=== PATIENT | female | born 1950 | race Caucasian/White ===

== ENCOUNTER 2017-11-27 20:13 | Emergency (ER) | payer MEDICARE, MEDICAID ==
[~2017-11-27] VITALS: Ht 162.6 cm; Wt 42.6 kg
[~2017-11-27 20:13] MED LIST: AMLO5TAB PO; DIPH-186 PO; ESTR0.5T PO; GABA-532 PO; GABA300C PO; HYDR-569 PO; LOP25T PO; MORP-64 PO; MORP15TA PO; NITR100C6 PO; OXYB5TAB11 PO; TRAZ-91 PO
[2017-11-27] MEDS ORDERED: dexamethasone sod phosphate 10mg/ml inj IV STA (20:50)
[2017-11-27] MEDS ORDERED: ketorolac tromethamine 15mg/ml inj. IV ONE (20:50)
[2017-11-27] MEDS ORDERED: proCHLORperazine 10 MG/2 ml inj IV ONE (20:50)
[2017-11-27] MEDS ORDERED: diphenhydrAMINE 50 mg/ml inj IV ONE (20:50)
[2017-11-27] MEDS ORDERED: normal saline 1000ML IV soln IVB ONE (20:50)
[2017-11-27] MEDS ORDERED: SUMAtriptan succ. 6 MG/0.5ml vial SQ ONE (20:50)
[2017-11-27] MEDS ORDERED: SUMA50TA PO (21:52)
[2017-11-27] MEDS ORDERED: PROC-8 PO (21:52)
[2017-11-27 22:28] VITALS: BP 170/55
== END 2017-11-27 22:32 | disposition home or self-care (01) ==
LOC: ER 20:14
DX: G43.909 Migraine, unspecified, not intractable, without status migrainosus (principal); I10 Essential (primary) hypertension; G89.29 Other chronic pain; H53.149 Visual discomfort, unspecified; Z85.43 Personal history of malignant neoplasm of ovary; Z90.49 Acquired absence of other specified parts of digestive tract; Z98.84 Bariatric surgery status; Z87.442 Personal history of urinary calculi; Z88.0 Allergy status to penicillin; Z88.2 Allergy status to sulfonamides; Z88.8 Allergy status to other drugs, medicaments and biological substances; Z79.899 Other long term (current) drug therapy
CPT/HCPCS: 96372; 96374; 96375; 99284; J1100; J1885; J3030; J7030; J0780; J1200

== ENCOUNTER 2018-05-01 16:07 | Inpatient (IN) | payer MEDICARE, MEDICAID ==
[~2018-05-01] VITALS: Ht 162.6 cm; Wt 50.0 kg
[~2018-05-01 16:07] MED LIST changes: +HYDR-4383 PO; -HYDR-569 PO; +PROC-8 PO
[2018-05-01] MEDS ORDERED: normal saline 1000ML IV soln IVB ONE (16:20)
[2018-05-01] MEDS ORDERED: ondansetron/PF 4mg/2ml inj IV ONE (16:20)
[2018-05-01] MEDS ORDERED: morphine 4 MG/ML inj SYRINge IV ONE (16:25)
[2018-05-01 16:48] LABS: BASOPHILS % (AUTO) 0.3 % (0-1); EOSINOPHILS # (AUTO) 0.2 X10'3 (0-0.9); EOSINOPHILS % (AUTO) 2.2 % (0-6); HEMATOCRIT 42.7 % (35.0-45.0); HEMOGLOBIN 13.9 g/dl (12.0-16.0); LYMPHOCYTES # (AUTO) 1.7 X10'3 (1.1-4.8); LYMPHOCYTES % (AUTO) 25.1 % (21-51); MEAN CORPUSCULAR HEMOGLOBIN 29.3 PG (27.0-31.0); MEAN CORPUSCULAR HGB CONC 32.5 % (33.0-36.5); MEAN CORPUSCULAR VOLUME 90.1 FL (78-98); MEAN PLATELET VOLUME 7.1 FL (7.4-10.4); MONOCYTES # (AUTO) 0.6 X10'3 (0-0.9); MONOCYTES % (AUTO) 9.4 % (2-12); NEUTROPHILS # (AUTO) 4.3 X10'3 (1.8-7.7); PLATELET COUNT 442 X10'3 (140-440); RED BLOOD COUNT 4.74 X10'6 (4.20-5.60); RED CELL DISTRIBUTION WIDTH 16.4 % (11.5-14.5); WHITE BLOOD COUNT 6.8 X10'3 (4.5-11.0)
[2018-05-01] MEDS ORDERED: HYDROmorphone 1 mg/ml syringe IV ONE (16:50)
[2018-05-01 17:05] LABS: ALANINE AMINOTRANSFERASE 9 U/L (12-78); ALBUMIN 3.2 G/DL (3.4-5.0); ALBUMIN/GLOBULIN RATIO 0.8 (1.1-1.5); ALKALINE PHOSPHATASE 122 IU/L (46-116); ANION GAP 9 (8-16); ASPARTATE AMINO TRANSFERASE 10 U/L (10-37); BILIRUBIN,TOTAL 0.2 MG/DL (0.1-1.0); BLOOD UREA NITROGEN 29 MG/DL (7-18); CALCIUM 9.5 MG/DL (8.5-10.1); CHLORIDE 105 MMOL/L (99-107); GLUCOSE 88 MG/DL (70-104); LIPASE 78 U/L (73-393); POTASSIUM 3.6 MMOL/L (3.5-5.1); SODIUM 142 MMOL/L (135-145); TOTAL CARBON DIOXIDE 28.4 MMOL/L (24-32); TOTAL PROTEIN 7.2 G/DL (6.4-8.2); eGFR > 90 ML/MIN
[2018-05-01] MEDS ORDERED: LORazepam 2 mg/ml vial IV ONE (17:05)
[2018-05-01] MEDS ORDERED: diphenhydrAMINE 50 mg/ml inj IV ONE (17:05)
[2018-05-01 18:51] LABS: CLARITY,URINE CLOUDY (Clear); COLOR,URINE YELLOW (Yellow); GLUCOSE, URINE NEGATIVE (Neg); KETONES,URINE NEGATIVE (Neg); LEUKOCYTE ESTERASE ,URINE NEGATIVE (Neg); NITRITES, URINE POSITIVE (Neg); OCCULT BLOOD,URINE SMALL (Neg); PH,URINE 7.5 (4.8-8.0); PROTEIN,URINE NEGATIVE (Neg); UA COLLECTION TYPE CLN CATCH MIDSTREAM; UROBILINOGEN,URINE 0.2 E.U/dL (0.2-1.0)
[2018-05-01 19:01] LABS: AMORPHOUS PHOSPHATES 2+; BACTERIA,URINE 4+ /HPF (Neg); MUCUS STRANDS NONE SEEN /LPF (Neg); SQUAMOUS EPITHELIAL CELL,UR FEW /LPF (FEW); WBC,URINE 0-4 /HPF (0-4)
[2018-05-01] MEDS ORDERED: CefTRIAXone 2gm/D5W 50ml 50 ML IV ONE (19:25)
[2018-05-01 19:41] LABS: ETHANOL < 0.010 GM/DL (0.0-0.010)
[2018-05-01 19:42] LABS: INR 0.9 INR; PROTHROMBIN TIME 9.6 SECONDS (9.0-12.0)
[2018-05-01] MEDS ORDERED: mag hydrox/Alum hydrox/simeth 30ml oral suspension PO PRN (20:05)
[2018-05-01] MEDS ORDERED: magnesium hydroxide 30ml (MOM) UD suspension PO PRN (20:05)
[2018-05-01] MEDS ORDERED: bisacodyl 10mg suppository rectal RC PRN (20:05)
[2018-05-01] MEDS ORDERED: docusate sod 100mg capsule PO PRN (20:05)
[2018-05-01] MEDS ORDERED: acetaminophen 325mg tablet PO PRN ×2 (20:05)
[2018-05-01 20:40] LABS: URINE AMPHETAMINE SCREEN NEGATIVE (Neg); URINE BARBITUATE SCREEN NEGATIVE (Neg); URINE BENZODIAZEPINES SCREEN NEGATIVE (Neg); URINE CANNABINOID SCREEN NEGATIVE (Neg); URINE COCAINE SCREEN NEGATIVE (Neg); URINE METHADONE SCREEN NEGATIVE (Neg); URINE OPIATE SCREEN POSITIVE (Neg); URINE PHENCYCLIDINE SCREEN NEGATIVE (Neg)
[2018-05-01] MEDS: HYDROmorphone 1 mg/ml syringe IV PRN (21:21)
[2018-05-01] MEDS: normal saline 1000ml 1,000 ML IV SCH (21:22)
[2018-05-01] MEDS: hydrALAZINE 20mg/ml inj. IV PRN (22:21)
[2018-05-02] MEDS: ondansetron/PF 4mg/2ml inj IV PRN ×2 (00:15→14:37)
[2018-05-02] MEDS: HYDROmorphone 1 mg/ml syringe IV PRN ×6 (01:22→23:31)
[2018-05-02] MEDS: normal saline 1000ml 1,000 ML IV SCH ×2 (07:47→16:05)
[2018-05-02 08:21] LABS: BASOPHILS % (AUTO) 0.3 % (0-1); EOSINOPHILS # (AUTO) 0.2 X10'3 (0-0.9); EOSINOPHILS % (AUTO) 1.6 % (0-6); HEMATOCRIT 41.2 % (35.0-45.0); HEMOGLOBIN 13.3 g/dl (12.0-16.0); LYMPHOCYTES # (AUTO) 0.8 X10'3 (1.1-4.8); LYMPHOCYTES % (AUTO) 7.6 % (21-51); MEAN CORPUSCULAR HGB CONC 32.3 % (33.0-36.5); MEAN CORPUSCULAR VOLUME 89.9 FL (78-98); MEAN PLATELET VOLUME 6.8 FL (7.4-10.4); MONOCYTES # (AUTO) 0.3 X10'3 (0-0.9); MONOCYTES % (AUTO) 2.6 % (2-12); NEUTROPHILS % (AUTO) 87.9 % (42-75); PLATELET COUNT 426 X10'3 (140-440); RED BLOOD COUNT 4.58 X10'6 (4.20-5.60); RED CELL DISTRIBUTION WIDTH 16.3 % (11.5-14.5); WHITE BLOOD COUNT 10.2 X10'3 (4.5-11.0)
[2018-05-02 08:35] LABS: ALBUMIN 3.2 G/DL (3.4-5.0); ANION GAP 13 (8-16); BLOOD UREA NITROGEN 15 MG/DL (7-18); BUN/CREATININE RATIO 44.1 (6.6-38.0); CALCIUM 8.7 MG/DL (8.5-10.1); CHLORIDE 98 MMOL/L (99-107); CREATININE 0.34 MG/DL (0.40-0.90); GLUCOSE 146 MG/DL (70-104); SODIUM 134 MMOL/L (135-145); TOTAL CARBON DIOXIDE 23.3 MMOL/L (24-32); eGFR > 90 ML/MIN
[2018-05-02] MEDS: oxybutynin 5mg tablet PO SCH ×2 (08:35→20:00)
[2018-05-02] MEDS: amLODIPine 5mg tablet PO SCH (08:35)
[2018-05-02] MEDS: metoprolol tartrate 25mg tablet PO SCH ×2 (08:35→20:59)
[2018-05-02] MEDS: levoFLOXACIN-Levaquin 500mg/D5 100 ML IV SCH (08:36)
[2018-05-02 08:51] LABS: POTASSIUM 2.6 MMOL/L (3.5-5.1)
[2018-05-02] MEDS ORDERED: potassium Cl 20 mEq SR tablet PO PRN (09:05)
[2018-05-02] MEDS ORDERED: potassium Cl 40MEQ/NS 500ml 500 ML IV PRN (09:05)
[2018-05-02] MEDS ORDERED: HYDROmorphone 1 mg/ml syringe IV ONE ×2 (10:00→21:20)
[2018-05-02] MEDS: K and/or MAG REPLACEMENT MC SCH (10:05)
[2018-05-02] MEDS: potassium Cl 40MEQ/NS 500ml 500 ML IV PRN ×2 (10:29→16:11)
[2018-05-02 17:36] VITALS: BP 169/91
[2018-05-02] MEDS: hydrALAZINE 20mg/ml inj. IV PRN (17:41)
[2018-05-02 18:50] VITALS: BP 142/80
[2018-05-02] MEDS: diatr meglu/diatrizoate 30ml oral sol.-(3 dose) bottle PO SCH (20:59)
[2018-05-02] MEDS ORDERED: HYDROmorphone 1 mg/ml syringe IV PRN (21:20)
[2018-05-02] MEDS: traZODone 50mg tablet PO PRN (23:31)
[2018-05-03] VITALS: BP 157/84
[2018-05-03] MEDS: normal saline 1000ml 1,000 ML IV SCH ×4 (02:00→23:55)
[2018-05-03] MEDS: HYDROmorphone 1 mg/ml syringe IV PRN ×4 (05:14→20:35)
[2018-05-03 05:38] LABS: BASOPHILS % (AUTO) 0.5 % (0-1); EOSINOPHILS # (AUTO) 0.1 X10'3 (0-0.9); EOSINOPHILS % (AUTO) 1.6 % (0-6); HEMATOCRIT 41.3 % (35.0-45.0); HEMOGLOBIN 13.1 g/dl (12.0-16.0); LYMPHOCYTES # (AUTO) 1.6 X10'3 (1.1-4.8); LYMPHOCYTES % (AUTO) 22.4 % (21-51); MEAN CORPUSCULAR HEMOGLOBIN 28.8 PG (27.0-31.0); MEAN CORPUSCULAR HGB CONC 31.8 % (33.0-36.5); MEAN CORPUSCULAR VOLUME 90.5 FL (78-98); MEAN PLATELET VOLUME 7.2 FL (7.4-10.4); MONOCYTES # (AUTO) 0.8 X10'3 (0-0.9); MONOCYTES % (AUTO) 11.1 % (2-12); NEUTROPHILS # (AUTO) 4.6 X10'3 (1.8-7.7); NEUTROPHILS % (AUTO) 64.4 % (42-75); PLATELET COUNT 412 X10'3 (140-440); RED BLOOD COUNT 4.57 X10'6 (4.20-5.60); RED CELL DISTRIBUTION WIDTH 16.3 % (11.5-14.5); WHITE BLOOD COUNT 7.1 X10'3 (4.5-11.0)
[2018-05-03 05:52] LABS: ALBUMIN 2.8 G/DL (3.4-5.0); ANION GAP 11 (8-16); BLOOD UREA NITROGEN 18 MG/DL (7-18); BUN/CREATININE RATIO 40.9 (6.6-38.0); CALCIUM 9.3 MG/DL (8.5-10.1); CHLORIDE 105 MMOL/L (99-107); CREATININE 0.44 MG/DL (0.40-0.90); GLUCOSE 93 MG/DL (70-104); POTASSIUM 3.6 MMOL/L (3.5-5.1); SODIUM 138 MMOL/L (135-145); TOTAL CARBON DIOXIDE 21.9 MMOL/L (24-32); eGFR > 90 ML/MIN
[2018-05-03 07:00] VITALS: BP 144/75
[2018-05-03] MEDS: diatr meglu/diatrizoate 30ml oral sol.-(3 dose) bottle PO SCH ×3 (07:29→20:15)
[2018-05-03] MEDS ORDERED: acetaminophen 325mg/10.15ml oral unit dose solution PO PRN ×2 (07:59→08:00)
[2018-05-03] MEDS: K and/or MAG REPLACEMENT MC SCH (08:00)
[2018-05-03] MEDS: levoFLOXACIN-Levaquin 500mg/D5 100 ML IV SCH (08:04)
[2018-05-03] MEDS: amLODIPine 5mg tablet PO SCH (08:05)
[2018-05-03] MEDS: oxybutynin 5mg tablet PO SCH ×2 (08:05→20:34)
[2018-05-03] MEDS: metoprolol tartrate 25mg tablet PO SCH ×2 (08:06→20:34)
[2018-05-03] MEDS ORDERED: iohexol 300mg/ml 100ml inj. ONE (08:58)
[2018-05-03 11:46] VITALS: BP 140/83
[2018-05-03] MEDS ORDERED: morphine IR (immed. release) 30mg tablet PO SCH (13:00)
[2018-05-03] MEDS ORDERED: morphine 10mg/0.5ml (conc. morphine) oral syringe PO SCH (13:15)
[2018-05-03] MEDS: morphine 10mg/0.5ml (conc. morphine) oral syringe PO SCH ×2 (13:22→21:30)
[2018-05-03] MEDS: CefTRIAXone/D5W-Rocephin 1gm 50 ML IV SCH (14:04)
[2018-05-03 19:00] VITALS: BP 131/74
[2018-05-03] MEDS: magnesium hydroxide 30ml (MOM) UD suspension PO SCH (20:33)
[2018-05-04] VITALS: BP 141/87
[2018-05-04] MEDS: morphine 10mg/0.5ml (conc. morphine) oral syringe PO SCH ×3 (00:08→12:31)
[2018-05-04] MEDS: traZODone 50mg tablet PO PRN (01:22)
[2018-05-04 05:22] LABS: BASOPHILS % (AUTO) 0.5 % (0-1); EOSINOPHILS # (AUTO) 0.1 X10'3 (0-0.9); EOSINOPHILS % (AUTO) 2.5 % (0-6); HEMATOCRIT 35.4 % (35.0-45.0); HEMOGLOBIN 11.7 g/dl (12.0-16.0); LYMPHOCYTES # (AUTO) 1.8 X10'3 (1.1-4.8); LYMPHOCYTES % (AUTO) 33.1 % (21-51); MEAN CORPUSCULAR HEMOGLOBIN 29.7 PG (27.0-31.0); MEAN CORPUSCULAR VOLUME 90.2 FL (78-98); MONOCYTES # (AUTO) 0.5 X10'3 (0-0.9); MONOCYTES % (AUTO) 9.6 % (2-12); NEUTROPHILS % (AUTO) 54.3 % (42-75); PLATELET COUNT 344 X10'3 (140-440); RED BLOOD COUNT 3.93 X10'6 (4.20-5.60); RED CELL DISTRIBUTION WIDTH 16.5 % (11.5-14.5); WHITE BLOOD COUNT 5.5 X10'3 (4.5-11.0)
[2018-05-04 05:43] LABS: ALBUMIN 2.4 G/DL (3.4-5.0); ANION GAP 9 (8-16); BLOOD UREA NITROGEN 12 MG/DL (7-18); BUN/CREATININE RATIO 27.9 (6.6-38.0); CALCIUM 8.3 MG/DL (8.5-10.1); CHLORIDE 109 MMOL/L (99-107); CREATININE 0.43 MG/DL (0.40-0.90); GLUCOSE 94 MG/DL (70-104); SODIUM 142 MMOL/L (135-145); eGFR > 90 ML/MIN
[2018-05-04 06:07] LABS: POTASSIUM 2.9 MMOL/L (3.5-5.1)
[2018-05-04] MEDS: potassium Cl 20 mEq SR tablet PO PRN ×3 (06:21→14:29)
[2018-05-04 07:09] VITALS: BP 128/82
[2018-05-04] MEDS: CefTRIAXone/D5W-Rocephin 1gm 50 ML IV SCH (07:29)
[2018-05-04] MEDS: magnesium hydroxide 30ml (MOM) UD suspension PO SCH (07:29)
[2018-05-04] MEDS: metoprolol tartrate 25mg tablet PO SCH (07:30)
[2018-05-04] MEDS: oxybutynin 5mg tablet PO SCH (07:30)
[2018-05-04] MEDS: amLODIPine 5mg tablet PO SCH (07:30)
[2018-05-04] MEDS: K and/or MAG REPLACEMENT MC SCH (07:32)
[2018-05-04] MEDS ORDERED: magnesium Cl slow-release 64mg tablet PO PRN (08:40)
[2018-05-04] MEDS ORDERED: magnesium 4gm in 100ml NS 100 ML IV PRN (08:40)
[2018-05-04] MEDS ORDERED: magnesium 2 GM in 50ml IV PRN (08:45)
[2018-05-04 09:30] LABS: MAGNESIUM 1.9 MG/DL (1.5-2.4)
[2018-05-04 11:24] VITALS: BP 116/68
[2018-05-04] MEDS ORDERED: POTA20TA19 PO (17:06)
[2018-05-04] MEDS ORDERED: CEFD300C3 PO (17:10)
[2018-05-04] MEDS ORDERED: potassium Cl 20 mEq SR tablet PO SCH (17:30)
[2018-05-04] MEDS ORDERED: lactobacillus rhamnosus 10,000 MMU CELLS/CAPSULE PO SCH (20:00)
== END 2018-05-04 17:36 | disposition home or self-care (01) | DRG 690 ==
LOC: ER 16:07 → ED HOLD 20:05 → SUR 3N 05-02 17:28
PROVIDERS: ADMIT Internal Medicine; ATTEND Family Medicine
PROC: 0D9670Z Drainage of Stomach with Drainage Device, Via Natural or Artificial Opening (ICD-10-PCS; principal; 2018-05-01)
PROC: BW211ZZ Computerized Tomography (CT Scan) of Abdomen and Pelvis using Low Osmolar Contrast (ICD-10-PCS; 2018-05-03)
DX: N39.0 Urinary tract infection, site not specified (principal); K56.50 Intestinal adhesions [bands], unspecified as to partial versus complete obstruction; R64 Cachexia; Z68.1 Body mass index [BMI] 19.9 or less, adult; E87.1 Hypo-osmolality and hyponatremia; E86.0 Dehydration; E87.6 Hypokalemia; F32.9 Major depressive disorder, single episode, unspecified; G43.909 Migraine, unspecified, not intractable, without status migrainosus; B96.20 Unspecified Escherichia coli [E. coli] as the cause of diseases classified elsewhere; F17.210 Nicotine dependence, cigarettes, uncomplicated; G89.4 Chronic pain syndrome; I10 Essential (primary) hypertension; Z98.84 Bariatric surgery status; Z90.49 Acquired absence of other specified parts of digestive tract; Z88.0 Allergy status to penicillin; Z88.5 Allergy status to narcotic agent; Z88.2 Allergy status to sulfonamides; Z79.899 Other long term (current) drug therapy; Z87.01 Personal history of pneumonia (recurrent); Z85.028 Personal history of other malignant neoplasm of stomach; Z85.43 Personal history of malignant neoplasm of ovary; Z87.11 Personal history of peptic ulcer disease; Z87.442 Personal history of urinary calculi; Z71.6 Tobacco abuse counseling
CPT/HCPCS: 36415; 74176; 74177; 80048; 80053; 80305; 80320; 81001; 83605; 83690; 83735; 84132; 84484; 85025; 85610; 87070; 87077; 87088; 87186; 93005; 96361; 96374; 96375; 99285; G0378; J0360; J0696; J1170; J1200; J1956; J2060; J2270; J2405; J3480; J7030; Q9963; Q9967

== ENCOUNTER 2018-08-26 17:45 | Emergency (ER) | payer MEDICARE, MEDICAID ==
[~2018-08-26] VITALS: Ht 162.6 cm; Wt 36.1 kg
[~2018-08-26 17:45] MED LIST changes: +CEFD300C3 PO; -GABA-532 PO; -GABA300C PO; -HYDR-4383 PO; -MORP-64 PO; -MORP15TA PO; -NITR100C6 PO; -PROC-8 PO
[2018-08-26 18:25] VITALS: BP 112/64
[2018-08-26 18:55] LABS: CLARITY,URINE CLEAR (Clear); COLOR,URINE YELLOW (Yellow); GLUCOSE, URINE NEGATIVE (Neg); KETONES,URINE NEGATIVE (Neg); LEUKOCYTE ESTERASE ,URINE NEGATIVE (Neg); NITRITES, URINE NEGATIVE (Neg); OCCULT BLOOD,URINE NEGATIVE (Neg); PH,URINE 5.5 (4.8-8.0); PROTEIN,URINE NEGATIVE (Neg); UROBILINOGEN,URINE 0.2 E.U/dL (0.2-1.0)
[2018-08-26 19:01] LABS: UA COLLECTION TYPE CLN CATCH MIDSTREAM
[2018-08-27] MEDS ORDERED: HYDROcodone/acetaminophen 5mg/325mg tablet PO ONE (01:15)
[2018-08-27] MEDS ORDERED: ondansetron 4mg rapidly disintigrating tab PO ONE (01:15)
--- NOTE | 2018-08-27 01:50 | NUR ---
PT REFUSING VITAL SIGNS.
[2018-08-27 02:02] LABS: BASOPHILS # (AUTO) 0.1 X10'3 (0-0.2); BASOPHILS % (AUTO) 0.8 % (0-1); EOSINOPHILS % (AUTO) 0.2 % (0-6); HEMATOCRIT 42.2 % (35.0-45.0); HEMOGLOBIN 13.7 g/dl (12.0-16.0); LYMPHOCYTES # (AUTO) 2.7 X10'3 (1.1-4.8); LYMPHOCYTES % (AUTO) 20.8 % (21-51); MEAN CORPUSCULAR HEMOGLOBIN 30.5 PG (27.0-31.0); MEAN CORPUSCULAR HGB CONC 32.4 g/dL (33.0-36.5); MEAN CORPUSCULAR VOLUME 94.3 FL (78-98); MEAN PLATELET VOLUME 7.1 FL (7.4-10.4); MONOCYTES % (AUTO) 7.9 % (2-12); NEUTROPHILS % (AUTO) 70.3 % (42-75); PLATELET COUNT 388 X10'3 (140-440); RED BLOOD COUNT 4.48 X10'6 (4.20-5.60); RED CELL DISTRIBUTION WIDTH 14.3 % (11.5-14.5); WHITE BLOOD COUNT 12.8 X10'3 (4.5-11.0)
[2018-08-27 02:19] LABS: ALANINE AMINOTRANSFERASE 26 U/L (12-78); ALBUMIN 4.2 G/DL (3.4-5.0); ALBUMIN/GLOBULIN RATIO 1.1 (1.1-1.5); ALKALINE PHOSPHATASE 152 IU/L (46-116); ANION GAP 11 (8-16); ASPARTATE AMINO TRANSFERASE 19 U/L (10-37); BILIRUBIN,TOTAL 0.3 MG/DL (0.1-1.0); BLOOD UREA NITROGEN 34 MG/DL (7-18); BUN/CREATININE RATIO 50.7 (6.6-38.0); CALCIUM 9.7 MG/DL (8.5-10.1); CHLORIDE 102 MMOL/L (99-107); CREATININE 0.67 MG/DL (0.40-0.90); GLUCOSE 98 MG/DL (70-104); POTASSIUM 3.9 MMOL/L (3.5-5.1); SODIUM 138 MMOL/L (135-145); TOTAL CARBON DIOXIDE 25.2 MMOL/L (24-32); TOTAL PROTEIN 8.2 G/DL (6.4-8.2); eGFR 88 ML/MIN
[2018-08-27 02:22] LABS: LIPASE 399 U/L (73-393); TROPONIN I < 0.04 NG/ML (0.0-0.05)
[2018-08-27] MEDS ORDERED: ketorolac trometh inj. 60 MG/2 ML VIAL IM ONE (02:35)
[2018-08-27] MEDS ORDERED: BISA-155 PO (02:36)
[2018-08-27] MEDS ORDERED: MAGN296S50 PO (02:36)
--- NOTE | 2018-08-27 02:40 | NUR ---
PT WAS ASKED TWICE TO STAY IN HER ROOM, I EXPLAINED TO THE PATIENT THAT OTHER PATIENTS HAVE PRIVACY AND THAT SHE CAN NOT BE WONDERING THE HALLS OF THE ED. PATIENT BECAME AGGITATED AND SAID SHE CAN DO WHATEVER SHE WANTS. I INFORMED HER OF PRIVACY LAWS AND INSTRUCTED HER TO FOLLOW THEM KINDLY. PT INFORMED SHE HAD A TORADOL SHOT ORDERED BUT NEEDED TO GO TO HER ROOM. WHEN I BROUGHT THE TORADOL SHOT PATIENT WAS STILL NOTICEABLY AGGITATED AND I INFORMED HER I DO NOT TRUST HAVING A NEEDLE AROUND HER DO TO HER ERRATIC BEHAVIOR AND AGGITATION. INFORMED. TORADOL NON-ADMIN. MD AT BEDSIDE TO DISCUSS FINDINGS OF CT AND LAB RESULTS. PT TO BE DISCHARGED.
== END 2018-08-27 02:51 | disposition home or self-care (01) ==
LOC: ER 17:45
DX: K59.00 Constipation, unspecified (principal); I10 Essential (primary) hypertension; G43.909 Migraine, unspecified, not intractable, without status migrainosus; G89.29 Other chronic pain; Z90.49 Acquired absence of other specified parts of digestive tract; Z88.0 Allergy status to penicillin; Z88.5 Allergy status to narcotic agent; Z88.2 Allergy status to sulfonamides; Z79.899 Other long term (current) drug therapy
CPT/HCPCS: 36415; 71045; 74176; 80053; 81003; 83690; 84484; 85025; 99284; J1885

== ENCOUNTER 2019-04-11 12:32 | Emergency (ER) | payer MEDICARE, MEDICAID ==
[~2019-04-11] VITALS: Ht 162.6 cm; Wt 42.0 kg
[~2019-04-11 12:32] MED LIST changes: +BISA-155 PO; +MAGN296S50 PO; -OXYB5TAB11 PO; +OXYB5TAB16 PO
[2019-04-11 12:38] VITALS: BP 146/84
[2019-04-11] MEDS ORDERED: BENZ-16 PO (13:48)
[2019-04-11] MEDS ORDERED: AZIT250T PO (13:48)
== END 2019-04-11 14:02 | disposition home or self-care (01) ==
LOC: ER 12:33
DX: J06.9 Acute upper respiratory infection, unspecified (principal); H92.03 Otalgia, bilateral; G43.909 Migraine, unspecified, not intractable, without status migrainosus; I10 Essential (primary) hypertension; G89.29 Other chronic pain; Z88.0 Allergy status to penicillin; Z88.6 Allergy status to analgesic agent; Z88.2 Allergy status to sulfonamides; Z79.899 Other long term (current) drug therapy; Z79.2 Long term (current) use of antibiotics; Z87.442 Personal history of urinary calculi; Z90.49 Acquired absence of other specified parts of digestive tract; Z98.84 Bariatric surgery status; Z85.43 Personal history of malignant neoplasm of ovary
CPT/HCPCS: 99283

== ENCOUNTER 2019-08-08 15:55 | Emergency (ER) | payer MEDICARE, MEDICAID ==
[~2019-08-08] VITALS: Ht 162.6 cm; Wt 43.6 kg
[~2019-08-08 15:55] MED LIST changes: +AZIT250T PO; -MAGN296S50 PO; +MAGN296S70 PO
[2019-08-08 16:21] VITALS: BP 148/78
[2019-08-08 17:18] LABS: BASOPHILS # (AUTO) 0.1 X10'3 (0-0.2); EOSINOPHILS # (AUTO) 0.3 X10'3 (0-0.9); EOSINOPHILS % (AUTO) 2.8 % (0-6); HEMATOCRIT 40.9 % (35.0-45.0); HEMOGLOBIN 13.6 g/dl (12.0-16.0); LYMPHOCYTES # (AUTO) 1.4 X10'3 (1.1-4.8); LYMPHOCYTES % (AUTO) 14.9 % (21-51); MEAN CORPUSCULAR HGB CONC 33.3 g/dL (33.0-36.5); MEAN PLATELET VOLUME 6.9 FL (7.4-10.4); MONOCYTES # (AUTO) 0.4 X10'3 (0-0.9); MONOCYTES % (AUTO) 4.2 % (2-12); NEUTROPHILS # (AUTO) 7.4 X10'3 (1.8-7.7); NEUTROPHILS % (AUTO) 77.1 % (42-75); PLATELET COUNT 372 X10'3 (140-440); RED BLOOD COUNT 4.25 X10'6 (4.20-5.60); RED CELL DISTRIBUTION WIDTH 15.1 % (11.5-14.5); WHITE BLOOD COUNT 9.6 X10'3 (4.5-11.0)
[2019-08-08 17:28] LABS: PARTIAL THROMBOPLASTIN TIME 27 SECONDS (22-32)
[2019-08-08 17:30] LABS: ALANINE AMINOTRANSFERASE 16 U/L (12-78); ALBUMIN 3.5 G/DL (3.4-5.0); ALBUMIN/GLOBULIN RATIO 0.9 (1.1-1.5); ALKALINE PHOSPHATASE 121 IU/L (46-116); ANION GAP 7 (8-16); ASPARTATE AMINO TRANSFERASE 14 U/L (10-37); BILIRUBIN,TOTAL 0.2 MG/DL (0.1-1.0); BLOOD UREA NITROGEN 29 MG/DL (7-18); BUN/CREATININE RATIO 43.9 (6.6-38.0); CALCIUM 9.1 MG/DL (8.5-10.1); CHLORIDE 104 MMOL/L (99-107); CREATININE 0.66 MG/DL (0.40-0.90); GLUCOSE 95 MG/DL (70-104); POTASSIUM 3.9 MMOL/L (3.5-5.1); SODIUM 140 MMOL/L (135-145); TOTAL CARBON DIOXIDE 29.1 MMOL/L (24-32); TOTAL PROTEIN 7.3 G/DL (6.4-8.2); eGFR 89 ML/MIN
[2019-08-08] MEDS ORDERED: BENZ-16 PO (18:04)
[2019-08-08] MEDS ORDERED: PRED20TA PO (18:05)
--- NOTE | 2019-08-08 18:17 | NUR ---
PT IS VERY UNHAPPY WITH SERVICE "I WANT TO SEE A REAL DOCTOR NEXT TIME...THIS MEDICATION WON'T WORK...I WANT SOMETHING DIFFERENT...I AM GOING TO THE OTHER HOSPITAL", PT LEFT WITHOUT DC PAPERWORK OR PRESCRIPTION, AMB WITH STEADY GAIT TO LOBBY
== END 2019-08-08 18:26 | disposition home or self-care (01) ==
LOC: ER 15:56
DX: J44.9 Chronic obstructive pulmonary disease, unspecified (principal); I10 Essential (primary) hypertension; G89.29 Other chronic pain; Z90.49 Acquired absence of other specified parts of digestive tract; Z98.0 Intestinal bypass and anastomosis status; Z98.890 Other specified postprocedural states; Z85.43 Personal history of malignant neoplasm of ovary; Z88.0 Allergy status to penicillin; Z88.5 Allergy status to narcotic agent; Z88.2 Allergy status to sulfonamides; Z88.1 Allergy status to other antibiotic agents; Z79.2 Long term (current) use of antibiotics; Z79.899 Other long term (current) drug therapy
CPT/HCPCS: 36415; 71045; 80053; 85025; 85610; 85730; 99284

== ENCOUNTER 2020-01-31 20:08 | Emergency (ER) | payer MEDICARE, MEDICAID ==
[~2020-01-31] VITALS: Ht 162.6 cm; Wt 42.4 kg
[~2020-01-31 20:08] MED LIST changes: -AZIT250T PO; -BISA-155 PO; -CEFD300C3 PO; -DIPH-186 PO; +HYDR-4383 PO; +LEVO500T89 PO; -MAGN296S70 PO; -OXYB5TAB16 PO; +tamsulosin capsule PO
[2020-01-31] MEDS ORDERED: normal saline 1000ML IV soln IVB ONE (21:45)
[2020-01-31] MEDS ORDERED: ondansetron/PF 4mg/2ml inj IV ONE (21:55)
[2020-01-31 21:56] LABS: CLARITY,URINE CLOUDY (Clear); COLOR,URINE YELLOW (Yellow); GLUCOSE, URINE NEGATIVE (Neg); KETONES,URINE NEGATIVE (Neg); LEUKOCYTE ESTERASE ,URINE MODERATE (Neg); NITRITES, URINE POSITIVE (Neg); OCCULT BLOOD,URINE LARGE (Neg); PROTEIN,URINE 100 mg/dl (Neg); UROBILINOGEN,URINE 0.2 E.U/dL (0.2-1.0)
[2020-01-31 21:57] LABS: UA COLLECTION TYPE CLN CATCH MIDSTREAM
[2020-01-31 22:01] LABS: BACTERIA,URINE 4+ /HPF (Neg); RBC,URINE TNTC /HPF (0-2); SQUAMOUS EPITHELIAL CELL,UR FEW /LPF (FEW); WBC,URINE TNTC /HPF (0-4)
[2020-01-31 22:13] LABS: BASOPHILS # (AUTO) 0.1 X10'3 (0-0.2); BASOPHILS % (AUTO) 0.7 % (0-1); EOSINOPHILS # (AUTO) 0.2 X10'3 (0-0.9); EOSINOPHILS % (AUTO) 2.4 % (0-6); HEMATOCRIT 36.4 % (35.0-45.0); HEMOGLOBIN 11.9 g/dl (12.0-16.0); LYMPHOCYTES # (AUTO) 0.8 X10'3 (1.1-4.8); LYMPHOCYTES % (AUTO) 10.2 % (21-51); MEAN CORPUSCULAR HEMOGLOBIN 29.4 PG (27.0-31.0); MEAN CORPUSCULAR HGB CONC 32.8 g/dL (33.0-36.5); MEAN CORPUSCULAR VOLUME 89.8 FL (78-98); MEAN PLATELET VOLUME 6.6 FL (7.4-10.4); MONOCYTES % (AUTO) 12.3 % (2-12); NEUTROPHILS # (AUTO) 6.2 X10'3 (1.8-7.7); NEUTROPHILS % (AUTO) 74.4 % (42-75); PLATELET COUNT 476 X10'3 (140-440); RED BLOOD COUNT 4.06 X10'6 (4.20-5.60); RED CELL DISTRIBUTION WIDTH 15.4 % (11.5-14.5); WHITE BLOOD COUNT 8.3 X10'3 (4.5-11.0)
[2020-01-31] MEDS ORDERED: levoFLOXACIN-Levaquin 250mg/D5 50 ML IV STA (22:17)
[2020-01-31 22:28] LABS: ALANINE AMINOTRANSFERASE 9 U/L (12-78); ALBUMIN 2.5 G/DL (3.4-5.0); ALBUMIN/GLOBULIN RATIO 0.6 (1.1-1.5); ALKALINE PHOSPHATASE 96 IU/L (46-116); ANION GAP 11 (8-16); ASPARTATE AMINO TRANSFERASE 14 U/L (10-37); BILIRUBIN,TOTAL 0.3 MG/DL (0.1-1.0); BLOOD UREA NITROGEN 29 MG/DL (7-18); BUN/CREATININE RATIO 54.7 (6.6-38.0); CALCIUM 8.6 MG/DL (8.5-10.1); CHLORIDE 105 MMOL/L (99-107); CREATININE 0.53 MG/DL (0.40-0.90); GLUCOSE 104 MG/DL (70-104); SODIUM 139 MMOL/L (135-145); TOTAL CARBON DIOXIDE 23.2 MMOL/L (24-32); TOTAL PROTEIN 6.5 G/DL (6.4-8.2); eGFR > 90 ML/MIN
[2020-01-31 22:37] VITALS: BP 127/74
[2020-01-31] MEDS ORDERED: morphine 4 MG/ML inj SYRINge IV ONE (23:10)
--- NOTE | 2020-02-04 08:52 | NUR ---
PT CALLED REGARDING LAB RESULTS FROM 01/30 AND NEED TO CHANGE ABX. [facility] NOT ACCEPTING [facility] AT THIS TIME, UNABLE TO LEAVE MS.
--- NOTE | 2020-02-05 12:14 | NUR ---
late entry. called and left a message for pt. to return call, so we can change her antibiotic
--- NOTE | 2020-02-06 07:14 | NUR ---
called left a third message for pt. a letter was sent to pt. 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 letter was sent.
== END 2020-02-01 00:09 | disposition home or self-care (01) ==
LOC: ER 20:08
DX: N39.0 Urinary tract infection, site not specified (principal); R10.84 Generalized abdominal pain; G43.909 Migraine, unspecified, not intractable, without status migrainosus; I10 Essential (primary) hypertension; G89.29 Other chronic pain; Z96.0 Presence of urogenital implants; Z87.01 Personal history of pneumonia (recurrent); Z87.442 Personal history of urinary calculi; Z85.43 Personal history of malignant neoplasm of ovary; Z90.49 Acquired absence of other specified parts of digestive tract; Z98.890 Other specified postprocedural states; Z88.0 Allergy status to penicillin; Z88.5 Allergy status to narcotic agent; Z88.1 Allergy status to other antibiotic agents; Z88.8 Allergy status to other drugs, medicaments and biological substances; Z79.2 Long term (current) use of antibiotics; Z79.899 Other long term (current) drug therapy
CPT/HCPCS: 36415; 80053; 81001; 85025; 87077; 87088; 87186; 96361; 96365; 96375; 99284; J1956; J2270; J2405; J7030

== ENCOUNTER 2020-06-21 15:41 | Emergency (ER) | payer MEDICARE, MEDICAID ==
[~2020-06-21] VITALS: Ht 162.6 cm; Wt 44.3 kg
[2020-06-21] MEDS ORDERED: morphine 4 MG/ML inj SYRINge IV ONE (16:40)
[2020-06-21] MEDS ORDERED: normal saline 1000ml 1,000 ML IV ONE (16:40)
[2020-06-21] MEDS ORDERED: ketorolac tromethamine 15mg/ml inj. IM ONE (16:40)
[2020-06-21 17:17] LABS: EOSINOPHILS # (AUTO) 0.2 X10'3 (0-0.9); MEAN CORPUSCULAR HGB CONC 32.1 g/dL (33.0-36.5); MONOCYTES # (AUTO) 0.8 X10'3 (0-0.9); NEUTROPHILS # (AUTO) 7.8 X10'3 (1.8-7.7)
[2020-06-21 17:18] LABS: BASOPHILS # (AUTO) 0.1 X10'3 (0-0.2); BASOPHILS % (AUTO) 0.6 % (0-1); EOSINOPHILS % (AUTO) 1.8 % (0-6); HEMATOCRIT 32.8 % (35.0-45.0); HEMOGLOBIN 10.5 g/dl (12.0-16.0); LYMPHOCYTES % (AUTO) 9.9 % (21-51); MEAN CORPUSCULAR HEMOGLOBIN 29.1 PG (27.0-31.0); MEAN CORPUSCULAR VOLUME 90.7 FL (78-98); MEAN PLATELET VOLUME 6.5 FL (7.4-10.4); MONOCYTES % (AUTO) 8.2 % (2-12); NEUTROPHILS % (AUTO) 79.5 % (42-75); PLATELET COUNT 620 X10'3 (140-440); RED BLOOD COUNT 3.62 X10'6 (4.20-5.60); RED CELL DISTRIBUTION WIDTH 18.2 % (11.5-14.5); WHITE BLOOD COUNT 9.8 X10'3 (4.5-11.0)
[2020-06-21 17:33] LABS: ALANINE AMINOTRANSFERASE 11 U/L (12-78); ALBUMIN 2.9 G/DL (3.4-5.0); ALBUMIN/GLOBULIN RATIO 0.7 (1.1-1.5); ALKALINE PHOSPHATASE 106 IU/L (46-116); ANION GAP 11 (8-16); ASPARTATE AMINO TRANSFERASE 12 U/L (10-37); BILIRUBIN,TOTAL 0.3 MG/DL (0.1-1.0); CALCIUM 9.1 MG/DL (8.5-10.1); CHLORIDE 105 MMOL/L (99-107); GLUCOSE 87 MG/DL (70-104); LIPASE 56 U/L (73-393); POTASSIUM 3.9 MMOL/L (3.5-5.1); SODIUM 141 MMOL/L (135-145); TOTAL CARBON DIOXIDE 25.2 MMOL/L (24-32); TOTAL PROTEIN 7.2 G/DL (6.4-8.2)
[2020-06-21 17:40] LABS: BLOOD UREA NITROGEN 36 MG/DL (7-18); CREATININE 0.47 MG/DL (0.40-0.90); eGFR > 90 ML/MIN
[2020-06-21 17:42] LABS: BUN/CREATININE RATIO 76.6 (6.6-38.0)
[2020-06-21] MEDS ORDERED: TRAM50TA2 PO (18:50)
[2020-06-21 18:55] LABS: CLARITY,URINE CLEAR (Clear); COLOR,URINE YELLOW (Yellow); GLUCOSE, URINE NEGATIVE (Neg); KETONES,URINE NEGATIVE (Neg); LEUKOCYTE ESTERASE ,URINE NEGATIVE (Neg); NITRITES, URINE NEGATIVE (Neg); OCCULT BLOOD,URINE NEGATIVE (Neg); PH,URINE 5.5 (4.8-8.0); PROTEIN,URINE NEGATIVE (Neg); UROBILINOGEN,URINE 0.2 E.U/dL (0.2-1.0)
[2020-06-21 18:57] LABS: UA COLLECTION TYPE CLN CATCH MIDSTREAM
[2020-06-21] MEDS ORDERED: OXYC-145 PO (19:07)
[2020-06-21 19:16] VITALS: BP 150/85
== END 2020-06-21 19:18 | disposition home or self-care (01) ==
LOC: ER 15:42
DX: R10.12 Left upper quadrant pain (principal); G43.909 Migraine, unspecified, not intractable, without status migrainosus; I10 Essential (primary) hypertension; G89.29 Other chronic pain; Z87.442 Personal history of urinary calculi; Z90.49 Acquired absence of other specified parts of digestive tract; Z98.890 Other specified postprocedural states; Z85.43 Personal history of malignant neoplasm of ovary; Z88.5 Allergy status to narcotic agent; Z88.2 Allergy status to sulfonamides; Z88.8 Allergy status to other drugs, medicaments and biological substances; Z79.899 Other long term (current) drug therapy
CPT/HCPCS: 74176; 80053; 81003; 83690; 85025; 96372; 96374; 99285; J1885; J2270; J7030

== ENCOUNTER 2020-11-23 18:07 | Emergency (ER) | payer MEDICARE, MEDICAID ==
[~2020-11-23] VITALS: Ht 162.6 cm; Wt 36.4 kg
[~2020-11-23 18:07] MED LIST changes: +OXYC-145 PO
[2020-11-23 18:12] VITALS: BP 122/68
[2020-11-23] MEDS ORDERED: morphine 4 MG/ML inj SYRINge IV ONE (19:15)
[2020-11-23] MEDS ORDERED: ondansetron/PF 4mg/2ml inj IV ONE (19:15)
--- NOTE | 2020-11-23 19:39 | NUR ---
pt reports not wanting an iv. pt agrees to morphine as an IM injection and the zofran as an ODT tablet. ed emigdio johnson made aware of pt requests and agreed to the changes. orders changed as received by [facility]
[2020-11-23] MEDS ORDERED: ondansetron 4mg rapidly disintigrating tab PO ONE (19:40)
[2020-11-23 20:43] LABS: BASOPHILS % (AUTO) 0.2 % (0-1); EOSINOPHILS # (AUTO) 0.2 X10'3 (0-0.9); EOSINOPHILS % (AUTO) 2.7 % (0-6); HEMATOCRIT 34.3 % (35.0-45.0); HEMOGLOBIN 10.7 g/dl (12.0-16.0); LYMPHOCYTES # (AUTO) 1.1 X10'3 (1.1-4.8); MEAN CORPUSCULAR HEMOGLOBIN 25.5 PG (27.0-31.0); MEAN CORPUSCULAR HGB CONC 31.2 g/dL (33.0-36.5); MEAN CORPUSCULAR VOLUME 81.9 FL (78-98); MEAN PLATELET VOLUME 7.1 FL (7.4-10.4); MONOCYTES # (AUTO) 0.8 X10'3 (0-0.9); MONOCYTES % (AUTO) 11.5 % (2-12); NEUTROPHILS # (AUTO) 5.2 X10'3 (1.8-7.7); NEUTROPHILS % (AUTO) 70.6 % (42-75); PLATELET COUNT 445 X10'3 (140-440); RED BLOOD COUNT 4.19 X10'6 (4.20-5.60); RED CELL DISTRIBUTION WIDTH 17.3 % (11.5-14.5); WHITE BLOOD COUNT 7.4 X10'3 (4.5-11.0)
[2020-11-23 20:58] LABS: ALANINE AMINOTRANSFERASE 7 U/L (12-78); ALBUMIN 2.6 G/DL (3.4-5.0); ALBUMIN/GLOBULIN RATIO 0.7 (1.1-1.5); ALKALINE PHOSPHATASE 138 IU/L (46-116); ANION GAP 10 (8-16); ASPARTATE AMINO TRANSFERASE 9 U/L (10-37); BILIRUBIN,TOTAL 0.1 MG/DL (0.1-1.0); BLOOD UREA NITROGEN 33 MG/DL (7-18); BUN/CREATININE RATIO 53.2 (6.6-38.0); CALCIUM 8.1 MG/DL (8.5-10.1); CHLORIDE 108 MMOL/L (99-107); CREATININE 0.62 MG/DL (0.40-0.90); GLUCOSE 88 MG/DL (70-104); LIPASE < 50 U/L (73-393); POTASSIUM 3.5 MMOL/L (3.5-5.1); SODIUM 139 MMOL/L (135-145); TOTAL CARBON DIOXIDE 20.7 MMOL/L (24-32); TOTAL PROTEIN 6.6 G/DL (6.4-8.2); eGFR > 90 ML/MIN
== END 2020-11-23 21:43 | disposition home or self-care (01) ==
LOC: ER 18:07
DX: R10.11 Right upper quadrant pain (principal); G43.909 Migraine, unspecified, not intractable, without status migrainosus; I10 Essential (primary) hypertension; G89.29 Other chronic pain; Z87.442 Personal history of urinary calculi; Z87.01 Personal history of pneumonia (recurrent); Z90.49 Acquired absence of other specified parts of digestive tract; Z98.84 Bariatric surgery status; Z85.43 Personal history of malignant neoplasm of ovary; Z88.0 Allergy status to penicillin; Z88.2 Allergy status to sulfonamides; Z88.8 Allergy status to other drugs, medicaments and biological substances; Z79.2 Long term (current) use of antibiotics; Z79.899 Other long term (current) drug therapy
CPT/HCPCS: 36415; 80053; 83690; 85025; 96374; 99283; J2270

== ENCOUNTER 2021-05-07 11:48 | Day surgery (SDC) | payer OTHER ==
[~2021-05-07] VITALS: Ht 162.6 cm; Wt 40.9 kg
[2021-05-07] VITALS (7 sets, daily range): BP systolic 104–150; BP diastolic 55–82
[~2021-05-07 11:48] MED LIST changes: -LEVO500T89 PO; +LEVO500T90 PO
[2021-05-07] MEDS ORDERED: ondansetron/PF 4mg/2ml inj ONE (12:44)
[2021-05-07] MEDS ORDERED: LIDOcaine 1% (10mg/ml) 2ml vial ONE (13:00)
[2021-05-07] MEDS ORDERED: fentaNYL/PF 50MCG/1 ML 2ML syringe ONE ×2 (13:00→13:38)
[2021-05-07] MEDS ORDERED: iohexol 300 MG/1 ML 50ml polymer ONE (13:01)
[2021-05-07] MEDS ORDERED: midazolam 1 mg/ML 2ml injection ONE ×2 (13:20→13:36)
[2021-05-07] MEDS ORDERED: HYDR2TAB7 PO (13:42)
[2021-05-07] MEDS ORDERED: ASPI-147 PO (13:42)
[2021-05-07] MEDS ORDERED: DIAZ2TAB PO (13:42)
[2021-05-07] MEDS ORDERED: POLY17PO10 PO (13:42)
[2021-05-07] MEDS ORDERED: ONDA4VIA6 IV (13:42)
[2021-05-07] MEDS ORDERED: CYAN500T46 PO (13:42)
[2021-05-07] MEDS ORDERED: BISA10SU60 RC (13:42)
[2021-05-07] MEDS ORDERED: GABA-530 PO (13:42)
[2021-05-07] MEDS ORDERED: ESTR1TAB31 PO (13:42)
[2021-05-07] MEDS ORDERED: HEPARIN SQ (13:42)
[2021-05-07] MEDS ORDERED: MORP15TA PO (13:42)
[2021-05-07] MEDS ORDERED: PHE12.5R IV (13:42)
[2021-05-07] MEDS ORDERED: MAG355OR18 PO (13:42)
[2021-05-07] MEDS ORDERED: TEMA15CA5 PO (13:42)
[2021-05-07] MEDS ORDERED: MULT-1085 PO (13:42)
[2021-05-07] MEDS ORDERED: PANT-47 PO (13:42)
[2021-05-07] MEDS ORDERED: AMYL1CAP54 PO (13:42)
[2021-05-07] MEDS ORDERED: BENZ1LOZ61 PO (13:42)
[2021-05-07] MEDS ORDERED: FOLI0.8C PO (13:42)
[2021-05-07] MEDS ORDERED: SUCR1ORA15 PO (13:42)
[2021-05-07] MEDS ORDERED: POLY1DRO2 OP (13:42)
[2021-05-07] MEDS ORDERED: HYDR4TAB55 PO (13:42)
[2021-05-07] MEDS ORDERED: NA P133E RC (13:42)
[2021-05-07] MEDS ORDERED: morphine IR (immed. release) 30mg tablet PO PRN (14:20)
[2021-05-07] MEDS ORDERED: HYDROmorphone 2mg tablet PO PRN (15:30)
== END 2021-05-07 16:15 ==
LOC: SSTAY O 11:48
PROVIDERS: ATTEND Radiology Vascular & Interventional Radiology
DX: K94.13 Enterostomy malfunction (principal); Z88.0 Allergy status to penicillin; Z88.5 Allergy status to narcotic agent; Z88.2 Allergy status to sulfonamides; Z88.8 Allergy status to other drugs, medicaments and biological substances; Z79.899 Other long term (current) drug therapy; Y83.8 Other surgical procedures as the cause of abnormal reaction of the patient, or of later complication, without mention of misadventure at the time of the procedure; Y92.89 Other specified places as the place of occurrence of the external cause
CPT/HCPCS: 49451; 99152; 99153; B4087; C1729; C1769; J2001; J2250; J2405; J3010; Q9967; J3490